=== PATIENT | female | born 1980 | race Hispanic/Latino ===

== ENCOUNTER 2024-06-12 10:46 | Emergency (ER) | payer SELFPAY ==
[2024-06-12] MEDS ORDERED: Oxymetazoline HCl 0.05% (30 ML BOT) ONE (10:54)
[2024-06-12] MEDS ORDERED: Silver Nitrate Application 1 EACH ONE (11:28)
== END 2024-06-12 12:33 | disposition home or self-care (01) ==
LOC: ERS 10:46
DX: R04.0 Epistaxis (principal); Z55.0 Illiteracy and low-level literacy; Z75.8 Other problems related to medical facilities and other health care
CPT/HCPCS: 30901